=== PATIENT | male | born 1970 | race Caucasian/White ===

== ENCOUNTER 2017-12-21 20:16 | Emergency (ER) | payer OTHER ==
[~2017-12-21] VITALS: Ht 167.6 cm; Wt 163.3 kg
[~2017-12-21 20:16] MED LIST: ACET325 PO; ACET500 PO; AMOCLA875 PO; AMOX500 PO; ARTTEAOPSO BOTHEYES; ASPI81CH PO; ASPI81EC; ASPI81EC PO; ATEN100; ATEN50 PO; ATOR10 PO; AZIT500 PO; Adult Low Dose81 MG PO; Ayr Saline Na14.1 GM; BISA10S PR; BISM87SU PO; CARV6.25 PO; CEFD300 PO; CEPH500 PO; CLOT1TC TOP; CYCL10 PO; Coreg12.5 MG PO; FURO40 PO; INSR10I SUBQ; Inzo Antifun141.7 GM TOP; LISI5 PO; LOSA50 PO; LOSHYD; Liquitears15 ML BOTHEYES; METF500; METF500 PO; Mapap500 M1 PO; Micro-K10 MEQ PO; Milk Of Ma400 MG/5 M PO; NATURE'S TEARS15 M1 BOTHEYES; NYST100P TOP; NYST100TC TOP; OXYC5 PO; PERIDEX15 ML PO; PIOG30 PO; POTA10T PO; Prinivil10 MG PO; RANI150; RANI150 PO; SALINE NASAL M126 ML INH; SIMV10 PO; SIMV40 PO; SODCHL.65S; TIME COL PO; Ultram50 MG PO; WARF1 PO; WARF10 PO; WARF4 PO; WARF5 PO; WARF6 PO; WARF7.5 PO; [UNRECOGNIZED DRUG - OTHER] RC; [UNRECOGNIZED DRUG - REMARK]; [UNRECOGNIZED DRUG - REMARK]; [UNRECOGNIZED DRUG - REMARK]
[2017-12-21 20:38] LABS: Hematocrit 51.4 % (37.0-53.0); Hemoglobin 15.2 g/dL (13.5-17.5); Mean Corpuscular HGB 27.8 pg (26.0-34.0); Mean Corpuscular HGB Conc 29.6 g/dL (31.5-36.5); Mean Corpuscular Volume 94 fL (80-100); Mean Platelet Volume 10.9 fL (9.1-12.4); Platelet Count 186 K/mm3 (150-400); RDW Coefficient Variation 17.2 % (11.7-14.2); RDW Standard Deviation 59.3 fL (35.1-46.3); Red Blood Cell Count 5.46 M/mm3 (4.30-5.90)
[2017-12-21] MEDS ORDERED: HYDACE25S PR (20:47)
[2017-12-21 20:53] LABS: International Normalized Ratio 3.69
== END 2017-12-21 22:00 | disposition home or self-care (01) ==
LOC: ER 20:16
PROVIDERS: Emergency Medicine
DX: K64.8 Other hemorrhoids (principal); R79.1 Abnormal coagulation profile; I11.0 Hypertensive heart disease with heart failure; I50.9 Heart failure, unspecified; K21.9 Gastro-esophageal reflux disease without esophagitis; E11.9 Type 2 diabetes mellitus without complications; Z95.2 Presence of prosthetic heart valve; Z90.49 Acquired absence of other specified parts of digestive tract; Z88.8 Allergy status to other drugs, medicaments and biological substances; Z79.899 Other long term (current) drug therapy; Z79.84 Long term (current) use of oral hypoglycemic drugs; Z79.01 Long term (current) use of anticoagulants
CPT/HCPCS: 46600; 85027; 85610; 99284

== ENCOUNTER 2020-01-03 21:46 | Emergency (ER) | payer OTHER ==
[~2020-01-03] VITALS: Ht 167.6 cm; Wt 104.3 kg
[~2020-01-03 21:46] MED LIST changes: +HYDACE25S PR
[2020-01-03 22:54] LABS: BASOPHILS ABSOLUTE AUTO 0.01 K/mm3 (0.00-0.23); BASOPHILS PERCENT AUTO 0 % (0-2); EOSINOPHILS ABSOLUTE AUTO 0.06 K/mm3 (0.00-0.68); EOSINOPHILS PERCENT AUTO 1 % (0-6); Hematocrit 47.1 % (37.0-53.0); Hemoglobin 15.1 g/dL (13.5-17.5); IMMATURE GRAN ABSOLUTE AUTO 0.01 K/mm3 (0.00-0.10); IMMATURE GRAN PERCENT AUTO 0 % (0-1); LYMPHOCYTES ABSOLUTE AUTO 1.58 K/mm3 (0.84-5.20); LYMPHOCYTES PERCENT AUTO 21 % (21-46); MONOCYTES ABSOLUTE AUTO 0.45 K/mm3 (0.16-1.47); MONOCYTES PERCENT AUTO 6 % (4-13); Mean Corpuscular HGB 30.3 pg (26.0-34.0); Mean Corpuscular HGB Conc 32.1 g/dL (31.5-36.5); Mean Corpuscular Volume 95 fL (80-100); Mean Platelet Volume 11.1 fL (9.1-12.4); NEUTROPHILS PERCENT AUTO 72 % (41-73); Platelet Count 200 K/mm3 (150-400); RDW Coefficient Variation 13.9 % (11.7-14.2); RDW Standard Deviation 48.5 fL (35.1-46.3); Red Blood Cell Count 4.98 M/mm3 (4.30-5.90); White Blood Cell Count 7.41 K/mm3 (4.00-11.30)
== END 2020-01-04 03:21 | disposition home or self-care (01) ==
LOC: ER 21:46
PROVIDERS: Emergency Medicine
DX: R04.0 Epistaxis (principal); E11.9 Type 2 diabetes mellitus without complications; I10 Essential (primary) hypertension; K21.9 Gastro-esophageal reflux disease without esophagitis; G71.00 Muscular dystrophy, unspecified; Z86.73 Personal history of transient ischemic attack (TIA), and cerebral infarction without residual deficits
CPT/HCPCS: 85025

== ENCOUNTER 2020-01-17 19:31 | Emergency (ER) | payer OTHER ==
[~2020-01-17] VITALS: Ht 167.6 cm; Wt 127.0 kg
== END 2020-01-17 23:12 | disposition home or self-care (01) ==
LOC: ER 19:31
DX: K91.841 Postprocedural hemorrhage of a digestive system organ or structure following other procedure (principal); R04.0 Epistaxis; E11.9 Type 2 diabetes mellitus without complications; I10 Essential (primary) hypertension; K21.9 Gastro-esophageal reflux disease without esophagitis; G47.33 Obstructive sleep apnea (adult) (pediatric); Z86.73 Personal history of transient ischemic attack (TIA), and cerebral infarction without residual deficits; Z79.01 Long term (current) use of anticoagulants; Z79.899 Other long term (current) drug therapy; Z88.8 Allergy status to other drugs, medicaments and biological substances; Z79.84 Long term (current) use of oral hypoglycemic drugs
CPT/HCPCS: 99282

== ENCOUNTER → 2020-10-02 | Outpatient (CLI) | payer OTHER | END | disposition home or self-care (01) | LOC: LAB SHORT 10:31 → LAB EV 10:31 | DX: L72.3 Sebaceous cyst (principal) | CPT/HCPCS: 87070; 87075; 87077; 87147; 87186; 87205 ==

== ENCOUNTER → 2021-10-16 | Outpatient (CLI) | payer OTHER | END | disposition home or self-care (01) | LOC: LAB SHORT 15:38 → LAB 15:38 | DX: R35.0 Frequency of micturition (principal) | CPT/HCPCS: 87086 ==

== ENCOUNTER → 2022-12-30 | Outpatient (CLI) | payer OTHER ==
[2022-12-30 18:55] LABS: Bun/Creatinine Ratio 27.2 (12.0-20.0); Calcium, Blood 9.2 mg/dL (8.5-10.1); Creatinine, Blood 0.81 mg/dL (0.60-1.20); Potassium, Blood 3.9 mmol/L (3.5-5.5)
[2022-12-31 14:40] LABS: BASOPHILS ABSOLUTE AUTO 0.01 K/mm3 (0.00-0.23); BASOPHILS PERCENT AUTO 0 % (0-2); EOSINOPHILS ABSOLUTE AUTO 0.05 K/mm3 (0.00-0.68); EOSINOPHILS PERCENT AUTO 1 % (0-6); Hematocrit 45.2 % (37.0-53.0); Hemoglobin 13.8 g/dL (13.5-17.5); IMMATURE GRAN ABSOLUTE AUTO 0.01 K/mm3 (0.00-0.10); IMMATURE GRAN PERCENT AUTO 0 % (0-1); LYMPHOCYTES ABSOLUTE AUTO 1.16 K/mm3 (0.84-5.20); LYMPHOCYTES PERCENT AUTO 27 % (21-46); MONOCYTES PERCENT AUTO 9 % (4-13); Mean Corpuscular HGB 29.6 pg (26.0-34.0); Mean Corpuscular HGB Conc 30.5 g/dL (31.5-36.5); Mean Corpuscular Volume 97 fL (80-100); NEUTROPHILS ABSOLUTE AUTO 2.68 K/mm3 (1.96-9.15); NEUTROPHILS PERCENT AUTO 62 % (41-73); Platelet Count 102 K/mm3 (150-400); RDW Coefficient Variation 15.8 % (11.7-14.2); Red Blood Cell Count 4.66 M/mm3 (4.30-5.90); White Blood Cell Count 4.31 K/mm3 (4.00-11.30)
== END | disposition home or self-care (01) ==
LOC: LAB 14:52 → LAB SHORT 14:52
PROVIDERS: Nurse Practitioner Family
DX: Z13.29 Encounter for screening for other suspected endocrine disorder (principal); I73.9 Peripheral vascular disease, unspecified; I10 Essential (primary) hypertension; R60.9 Edema, unspecified
CPT/HCPCS: 80048; 83880; 84443; 85025

== ENCOUNTER → 2023-01-09 | Outpatient (CLI) | payer OTHER ==
[~2023-01-09] MED LIST changes: +AFRIN15 M6 NS; +Lasix40 MG PO
== END | disposition home or self-care (01) ==
LOC: LAB SHORT 13:24
DX: R35.0 Frequency of micturition (principal)
CPT/HCPCS: 87086

== ENCOUNTER 2023-01-13 17:39 | Emergency (ER) | payer OTHER ==
[~2023-01-13] VITALS: Ht 172.7 cm; Wt 95.2 kg
[~2023-01-13 17:39] MED LIST changes: -AFRIN15 M6 NS; -Lasix40 MG PO
[2023-01-13] MEDS ORDERED: AFRIN15 M6 NS (17:58)
[2023-01-13] MEDS ORDERED: BISA10S PR (18:00)
[2023-01-13 19:16] LABS: BASOPHILS ABSOLUTE AUTO 0.01 K/mm3 (0.00-0.23); BASOPHILS PERCENT AUTO 0 % (0-2); EOSINOPHILS ABSOLUTE AUTO 0.06 K/mm3 (0.00-0.68); EOSINOPHILS PERCENT AUTO 1 % (0-6); Hematocrit 45.7 % (37.0-53.0); Hemoglobin 14.3 g/dL (13.5-17.5); IMMATURE GRAN ABSOLUTE AUTO 0.01 K/mm3 (0.00-0.10); IMMATURE GRAN PERCENT AUTO 0 % (0-1); LYMPHOCYTES ABSOLUTE AUTO 0.93 K/mm3 (0.84-5.20); LYMPHOCYTES PERCENT AUTO 18 % (21-46); MONOCYTES ABSOLUTE AUTO 0.46 K/mm3 (0.16-1.47); MONOCYTES PERCENT AUTO 9 % (4-13); Mean Corpuscular HGB 29.6 pg (26.0-34.0); Mean Corpuscular HGB Conc 31.3 g/dL (31.5-36.5); Mean Corpuscular Volume 95 fL (80-100); Mean Platelet Volume 11.9 fL (9.1-12.4); NEUTROPHILS ABSOLUTE AUTO 3.73 K/mm3 (1.96-9.15); NEUTROPHILS PERCENT AUTO 72 % (41-73); Platelet Count 97 K/mm3 (150-400); Red Blood Cell Count 4.83 M/mm3 (4.30-5.90)
[2023-01-13 19:35] LABS: Magnesium, Blood 2.2 mg/dL (1.6-2.4)
[2023-01-13 19:37] LABS: Alanine Aminotransfer (ALT/SGP 24 U/L (12-78); Albumin, Blood 3.4 g/dL (3.4-5.0); Albumin/Globulin Ratio 0.9 (0.8-1.8); Alk Phos 63 U/L (50-136); Anion Gap Unable to Calculate mmol/L (6-16); Aspartate Aminotrans (AST/SGOT 19 U/L (12-37); Bilirubin, Total 1.1 mg/dL (0.1-1.0); Blood Urea Nitrogen 25 mg/dL (8-24); Bun/Creatinine Ratio 34.2 (12.0-20.0); CO2, Blood 33 mmol/L (21-32); Calcium, Blood 9.2 mg/dL (8.5-10.1); Chloride, Blood 112 mmol/L (98-108); Creatinine, Blood 0.73 mg/dL (0.60-1.20); Globulin, Blood 3.6 g/dL (2.2-4.0); Glomerular Filtration Rate 111 (60-); Glucose, Blood 109 mg/dL (70-99); Potassium, Blood 4.6 mmol/L (3.5-5.5); Sodium, Blood 144 mmol/L (136-145)
[2023-01-13 19:48] LABS: International Normalized Ratio 3.89; Prothrombin Time Results 37.4 Sec (9.7-11.5)
[2023-01-13] MEDS ORDERED: Lasix40 MG PO (20:32)
== END 2023-01-13 21:35 | disposition home or self-care (01) ==
LOC: ER 17:39
PROVIDERS: Emergency Medicine
DX: R53.1 Weakness (principal); G71.00 Muscular dystrophy, unspecified; I11.0 Hypertensive heart disease with heart failure; I50.9 Heart failure, unspecified; Z88.8 Allergy status to other drugs, medicaments and biological substances; Z79.899 Other long term (current) drug therapy; Z79.01 Long term (current) use of anticoagulants; Z79.84 Long term (current) use of oral hypoglycemic drugs; Z95.2 Presence of prosthetic heart valve
CPT/HCPCS: 36415; 80053; 83735; 84484; 85025; 85610; 93005; 93010; 99284-25

== ENCOUNTER → 2023-01-20 | Outpatient (CLI) | payer OTHER ==
[~2023-01-20] MED LIST changes: +AFRIN15 M6 NS; +Lasix40 MG PO
[2023-01-20 11:59] LABS: BASOPHILS ABSOLUTE AUTO 0.01 K/mm3 (0.00-0.23); BASOPHILS PERCENT AUTO 0 % (0-2); EOSINOPHILS ABSOLUTE AUTO 0.06 K/mm3 (0.00-0.68); EOSINOPHILS PERCENT AUTO 1 % (0-6); Hematocrit 42.2 % (37.0-53.0); Hemoglobin 13.4 g/dL (13.5-17.5); IMMATURE GRAN ABSOLUTE AUTO 0.01 K/mm3 (0.00-0.10); IMMATURE GRAN PERCENT AUTO 0 % (0-1); LYMPHOCYTES ABSOLUTE AUTO 1.21 K/mm3 (0.84-5.20); LYMPHOCYTES PERCENT AUTO 24 % (21-46); MONOCYTES ABSOLUTE AUTO 0.53 K/mm3 (0.16-1.47); MONOCYTES PERCENT AUTO 11 % (4-13); Mean Corpuscular HGB 29.8 pg (26.0-34.0); Mean Corpuscular HGB Conc 31.8 g/dL (31.5-36.5); Mean Corpuscular Volume 94 fL (80-100); Mean Platelet Volume 12.9 fL (9.1-12.4); NEUTROPHILS ABSOLUTE AUTO 3.25 K/mm3 (1.96-9.15); NEUTROPHILS PERCENT AUTO 64 % (41-73); Platelet Count 89 K/mm3 (150-400); RDW Coefficient Variation 15.9 % (11.7-14.2); RDW Standard Deviation 55.1 fL (35.1-46.3); Red Blood Cell Count 4.49 M/mm3 (4.30-5.90); White Blood Cell Count 5.07 K/mm3 (4.00-11.30)
[2023-01-20 12:25] LABS: Bun/Creatinine Ratio 29.7 (12.0-20.0); Calcium, Blood 9.2 mg/dL (8.5-10.1); Creatinine, Blood 0.67 mg/dL (0.60-1.20)
== END | disposition home or self-care (01) ==
LOC: LAB SHORT 10:37 → LAB 10:37
PROVIDERS: Nurse Practitioner Family
DX: R19.7 Diarrhea, unspecified (principal)
CPT/HCPCS: 80048; 85025

== ENCOUNTER 2023-03-05 19:24 | Observation (INO) | payer OTHER ==
[~2023-03-05] VITALS: Ht 172.7 cm; Wt 119.3 kg
[~2023-03-05 19:24] MED LIST changes: +AFRIN15 M6; -AFRIN15 M6 NS; +ARTIFICIAL TEAR15 M2 BOTHEYES; -Ayr Saline Na14.1 GM; -BISM87SU PO; +BISMATROL PO; -Liquitears15 ML BOTHEYES; +NASAL SPRAY88 ML; -SALINE NASAL M126 ML INH; +[UNRECOGNIZED DRUG - OTHER]
[2023-03-05 20:21] LABS: BASOPHILS ABSOLUTE AUTO 0.02 K/mm3 (0.00-0.23); BASOPHILS PERCENT AUTO 1 % (0-2); EOSINOPHILS ABSOLUTE AUTO 0.06 K/mm3 (0.00-0.68); EOSINOPHILS PERCENT AUTO 2 % (0-6); Hematocrit 43.1 % (37.0-53.0); Hemoglobin 13.2 g/dL (13.5-17.5); IMMATURE GRAN ABSOLUTE AUTO 0.01 K/mm3 (0.00-0.10); IMMATURE GRAN PERCENT AUTO 0 % (0-1); LYMPHOCYTES ABSOLUTE AUTO 1.12 K/mm3 (0.84-5.20); LYMPHOCYTES PERCENT AUTO 30 % (21-46); MONOCYTES ABSOLUTE AUTO 0.47 K/mm3 (0.16-1.47); MONOCYTES PERCENT AUTO 13 % (4-13); Mean Corpuscular HGB 29.9 pg (26.0-34.0); Mean Corpuscular HGB Conc 30.6 g/dL (31.5-36.5); Mean Corpuscular Volume 98 fL (80-100); NEUTROPHILS ABSOLUTE AUTO 2.01 K/mm3 (1.96-9.15); NEUTROPHILS PERCENT AUTO 55 % (41-73); Platelet Count 106 K/mm3 (150-400); RDW Standard Deviation 61.3 fL (35.1-46.3); Red Blood Cell Count 4.41 M/mm3 (4.30-5.90); White Blood Cell Count 3.69 K/mm3 (4.00-11.30)
[2023-03-05 20:31] LABS: Alanine Aminotransfer (ALT/SGP 33 U/L (12-78); Albumin, Blood 3.1 g/dL (3.4-5.0); Albumin/Globulin Ratio 0.7 (0.8-1.8); Alk Phos 87 U/L (50-136); Anion Gap Unable to Calculate mmol/L (6-16); Aspartate Aminotrans (AST/SGOT 30 U/L (12-37); Bilirubin, Total 0.7 mg/dL (0.1-1.0); Blood Urea Nitrogen 21 mg/dL (8-24); Bun/Creatinine Ratio 34.2 (12.0-20.0); CO2, Blood 37 mmol/L (21-32); Calcium, Blood 9.1 mg/dL (8.5-10.1); Chloride, Blood 108 mmol/L (98-108); Creatinine, Blood 0.61 mg/dL (0.60-1.20); Globulin, Blood 4.3 g/dL (2.2-4.0); Glomerular Filtration Rate 116 (60-); Glucose, Blood 158 mg/dL (70-99); Potassium, Blood 4.5 mmol/L (3.5-5.5); Sodium, Blood 142 mmol/L (136-145); Total Protein, Blood 7.4 g/dL (6.4-8.2)
[2023-03-05 21:28] LABS: Influenza A, PCR NEGATIVE (NEGATIVE); Influenza B, PCR NEGATIVE (NEGATIVE); Resp Syncytial Virus, PCR NEGATIVE (NEGATIVE); SARS-Cov-2 (COVID-19) PCR, MMC NEGATIVE (NEGATIVE)
[2023-03-05] MEDS ORDERED: FAMO20 PO (23:17)
[2023-03-05] MEDS ORDERED: LOSARTAN POTAS100 M1 PO (23:18)
[2023-03-05] MEDS ORDERED: KLOR-CON 1010 ME9 PO (23:20)
[2023-03-05] MEDS ORDERED: Cetirizine HCl10 MG PO (23:21)
[2023-03-05] MEDS ORDERED: CARVEDILOL25 M9 PO (23:21)
[2023-03-05] MEDS ORDERED: Ventolin/Prove6.7 GM INH (23:22)
[2023-03-06 00:25] LABS: Prothrombin Time Results 72.1 Sec (9.7-11.5)
[2023-03-06 00:27] LABS: International Normalized Ratio 7.71
[2023-03-06 00:28] VITALS: BP 125/65
[2023-03-06 01:28] LABS: Prothrombin Time Results 64.4 Sec (9.7-11.5)
[2023-03-06 01:30] LABS: International Normalized Ratio 6.84
[2023-03-06 07:03] VITALS: BP 118/73
--- NOTE | 2023-03-06 07:37 | NUR ---
RECIEVED PATIENT FROM ED, ALERT AND ORIENTED, BEDBOUND FROM DISEASE PROGRESSION. BLE WOUND PICTURES PLACED IN CHART. INC OR STOOL AND URIN, CHANGES FREQUESNTLY, ABLE TO MAKE NEEDS KNOW, NO ISSUES SWALLOWING PILLS. PATIENT HAD A WET, NONPRODUCTIVE COUGH, DIM IN THE BASES, 3L BASELINE. GENERALIZED AND BLE EDEMA. MUSCLE WAISTING BUE. GROIN, PANIS AND JESÚS AREA REDNESS, POWDER, BARRIER, AND MEP APPLIED. NO OTHER ISSUES TO REPORT.
--- NOTE | 2023-03-06 14:00 | NUR ---
PHYSICIAN COMMUNICATION SPOKE WITH DR KIM AT 1330 REGARING DISCHARGE PLAN. NOTIFIED THAT WOUND CARE NURSE INPATIENT NOT IN TODAY. WOUND CLINIC WILL NOT BE ABLE TO SEE PATIENT AT CLINIC UNTIL FIRST WEEK OF MARCH. PER DR KIM, CHECK WITH CARE MANAGMENT TO SEE IF HOME HEALTH WOULD BE ABLE TO SEE PATIENT, IF NOT DR WILL CONSIDER TO KEEP PATIENT LONGER INPATIENT FOR WOUND CARE AND IV ABX. MIKE DIP DYER NOTIFIED
--- NOTE | 2023-03-06 14:41 | NUR ---
Upon receiving a referral for spiritual care, I visited the patient. He tells me about his medical issues, his love of scary movies and the friends and staff members that he enjoys. He Shares about his [employer] omega, the of his parents and the importance of the comfort of staying in his routines. I provide therapeutic listening and prayer. The pateint responded well and showed signs of increased peace. I will continue to remain available to pateint and family.
[2023-03-06] MEDS ORDERED: PEPTO-BISMOL T262 M2 PO (15:18)
[2023-03-06 15:27] VITALS: BP 112/87
[2023-03-06] MEDS ORDERED: CEFTRIAXON1 GM/50 M2 IV (15:33)
--- NOTE | 2023-03-06 17:15 | NUR ---
PATIENT ORIENTEDX4 PLEASANT AND COOPERATIVE WITH CARE. C/O BILAT LEG PAIN AT BEGINNING OF SHIFT, RESOLVED TO TOLERABLE LEVEL AFTER TREATMENT PER EMAR. CALL LIGHT IN REACH, PATIENT CALLS APPROPRIATELY. BED IN LOW POSITION. WILL CONTINUE TO MONIOR.
--- NOTE | 2023-03-06 18:09 | NUR ---
THIS STAFFING ASSISTANT HAS REVIEWED AND AGREES WITH ALL ALL NOTES AND ASSESSMENTS BY AMBERLY AMELIA.
--- NOTE | 2023-03-06 19:05 | NUR ---
PATIENT DISCHARGED HOME WITH [facility] VIA HOSPITAL BED AT 1820 03/06/23. POWER GLIDE IN PLACE TO LEFT UPPER ARM.
[2023-03-07] MEDS ORDERED: Amoxicillin500 M1 PO (21:29)
[2023-03-07] MEDS ORDERED: CEPH500 PO (21:30)
== END 2023-03-06 18:34 | disposition home or self-care (01) ==
LOC: ER 19:24 → MEDS 19:25
PROVIDERS: Family Medicine; Student in an Organized Health Care Education/Training Program; ADMIT Internal Medicine
DX: J18.9 Pneumonia, unspecified organism (principal); L03.119 Cellulitis of unspecified part of limb; E11.622 Type 2 diabetes mellitus with other skin ulcer; L97.829 Non-pressure chronic ulcer of other part of left lower leg with unspecified severity; L97.819 Non-pressure chronic ulcer of other part of right lower leg with unspecified severity; I11.0 Hypertensive heart disease with heart failure; I50.9 Heart failure, unspecified; I48.91 Unspecified atrial fibrillation; K21.9 Gastro-esophageal reflux disease without esophagitis; G47.33 Obstructive sleep apnea (adult) (pediatric); Z66 Do not resuscitate; Z95.4 Presence of other heart-valve replacement; Z88.8 Allergy status to other drugs, medicaments and biological substances; Z79.01 Long term (current) use of anticoagulants; Z79.84 Long term (current) use of oral hypoglycemic drugs; Z79.899 Other long term (current) drug therapy; Z20.822 Contact with and (suspected) exposure to COVID-19
CPT/HCPCS: 0241U; 36415; 71046; 80053; 82947; 83036; 83605; 83880; 85025; 85610; 93005; 93010; 94640; 94664; 94760; 96365; 96375; 99285-25; A9270; C1751; G0378; J0696; J1940

== ENCOUNTER 2023-03-07 05:53 | Emergency (ER) | payer OTHER ==
[~2023-03-07] VITALS: Ht 167.6 cm; Wt 104.3 kg
[~2023-03-07 05:53] MED LIST changes: +CARVEDILOL25 M9 PO; +CEFTRIAXON1 GM/50 M2 IV; +Cetirizine HCl10 MG PO; +FAMO20 PO; +KLOR-CON 1010 ME9 PO; +LOSARTAN POTAS100 M1 PO; +PEPTO-BISMOL T262 M2 PO; +Ventolin/Prove6.7 GM INH
[2023-03-07 06:28] LABS: BASOPHILS ABSOLUTE AUTO 0.02 K/mm3 (0.00-0.23); BASOPHILS PERCENT AUTO 0 % (0-2); EOSINOPHILS ABSOLUTE AUTO 0.03 K/mm3 (0.00-0.68); EOSINOPHILS PERCENT AUTO 0 % (0-6); Hematocrit 43.3 % (37.0-53.0); Hemoglobin 13.5 g/dL (13.5-17.5); IMMATURE GRAN ABSOLUTE AUTO 0.02 K/mm3 (0.00-0.10); IMMATURE GRAN PERCENT AUTO 0 % (0-1); LYMPHOCYTES ABSOLUTE AUTO 1.08 K/mm3 (0.84-5.20); LYMPHOCYTES PERCENT AUTO 16 % (21-46); MONOCYTES ABSOLUTE AUTO 0.51 K/mm3 (0.16-1.47); MONOCYTES PERCENT AUTO 8 % (4-13); Mean Corpuscular HGB 29.9 pg (26.0-34.0); Mean Corpuscular HGB Conc 31.2 g/dL (31.5-36.5); Mean Corpuscular Volume 96 fL (80-100); Mean Platelet Volume 11.9 fL (9.1-12.4); NEUTROPHILS ABSOLUTE AUTO 5.04 K/mm3 (1.96-9.15); NEUTROPHILS PERCENT AUTO 75 % (41-73); Platelet Count 148 K/mm3 (150-400); RDW Coefficient Variation 16.6 % (11.7-14.2); RDW Standard Deviation 58.9 fL (35.1-46.3); Red Blood Cell Count 4.52 M/mm3 (4.30-5.90)
[2023-03-07 06:49] LABS: Albumin, Blood 3.2 g/dL (3.4-5.0); Albumin/Globulin Ratio 0.8 (0.8-1.8); Bilirubin, Total 0.9 mg/dL (0.1-1.0); Bun/Creatinine Ratio 36.5 (12.0-20.0); Calcium, Blood 9.4 mg/dL (8.5-10.1); Creatinine, Blood 0.71 mg/dL (0.60-1.20); Magnesium, Blood 1.8 mg/dL (1.6-2.4); Potassium, Blood 4.4 mmol/L (3.5-5.5); Total Protein, Blood 7.2 g/dL (6.4-8.2)
[2023-03-07 07:37] LABS: Influenza A, PCR NEGATIVE (NEGATIVE); Influenza B, PCR NEGATIVE (NEGATIVE); Resp Syncytial Virus, PCR NEGATIVE (NEGATIVE); SARS-Cov-2 (COVID-19) PCR, MMC NEGATIVE (NEGATIVE)
[2023-03-07 10:30] VITALS: BP 125/80
[2023-03-07] MEDS ORDERED: Amoxicillin500 M1 PO (21:29)
[2023-03-07] MEDS ORDERED: CEPH500 PO (21:30)
== END 2023-03-07 11:20 | disposition home or self-care (01) ==
LOC: ER 05:53
PROVIDERS: Student in an Organized Health Care Education/Training Program
DX: I11.0 Hypertensive heart disease with heart failure (principal); I50.9 Heart failure, unspecified; J96.11 Chronic respiratory failure with hypoxia; Z88.8 Allergy status to other drugs, medicaments and biological substances; Z79.899 Other long term (current) drug therapy; Z79.01 Long term (current) use of anticoagulants; K21.9 Gastro-esophageal reflux disease without esophagitis; E11.9 Type 2 diabetes mellitus without complications; G47.33 Obstructive sleep apnea (adult) (pediatric)
CPT/HCPCS: 0241U; 71045; 80053; 83735; 83880; 84145; 84484; 85025; 93005; 93010; 96365; 96375; 99285-25; J0696; J1940

== ENCOUNTER 2023-03-07 20:55 | Inpatient (IN) | payer OTHER ==
[~2023-03-07] VITALS: Ht 170.2 cm; Wt 107.5 kg
[2023-03-07] MEDS ORDERED: Amoxicillin500 M1 PO (21:29)
[2023-03-07] MEDS ORDERED: CEPH500 PO (21:30)
[2023-03-07 23:54] LABS: BASOPHILS ABSOLUTE AUTO 0.02 K/mm3 (0.00-0.23); BASOPHILS PERCENT AUTO 0 % (0-2); EOSINOPHILS ABSOLUTE AUTO 0.14 K/mm3 (0.00-0.68); EOSINOPHILS PERCENT AUTO 2 % (0-6); Hematocrit 45.7 % (37.0-53.0); Hemoglobin 13.8 g/dL (13.5-17.5); IMMATURE GRAN ABSOLUTE AUTO 0.01 K/mm3 (0.00-0.10); IMMATURE GRAN PERCENT AUTO 0 % (0-1); LYMPHOCYTES ABSOLUTE AUTO 1.01 K/mm3 (0.84-5.20); LYMPHOCYTES PERCENT AUTO 16 % (21-46); MONOCYTES ABSOLUTE AUTO 0.55 K/mm3 (0.16-1.47); MONOCYTES PERCENT AUTO 9 % (4-13); Mean Corpuscular HGB 29.6 pg (26.0-34.0); Mean Corpuscular HGB Conc 30.2 g/dL (31.5-36.5); Mean Corpuscular Volume 98 fL (80-100); Mean Platelet Volume 11.4 fL (9.1-12.4); NEUTROPHILS ABSOLUTE AUTO 4.46 K/mm3 (1.96-9.15); NEUTROPHILS PERCENT AUTO 72 % (41-73); Platelet Count 141 K/mm3 (150-400); RDW Coefficient Variation 16.5 % (11.7-14.2); RDW Standard Deviation 60.3 fL (35.1-46.3); Red Blood Cell Count 4.67 M/mm3 (4.30-5.90); White Blood Cell Count 6.19 K/mm3 (4.00-11.30)
[2023-03-08] VITALS (32 sets, daily range): BP systolic 71–125; BP diastolic 51–96
[2023-03-08 00:15] LABS: Alanine Aminotransfer (ALT/SGP 46 U/L (12-78); Albumin/Globulin Ratio 0.7 (0.8-1.8); Alk Phos 82 U/L (50-136); Anion Gap Unable to Calculate mmol/L (6-16); Aspartate Aminotrans (AST/SGOT 51 U/L (12-37); Bilirubin, Total 0.7 mg/dL (0.1-1.0); Blood Urea Nitrogen 27 mg/dL (8-24); Bun/Creatinine Ratio 36.4 (12.0-20.0); CO2, Blood 40 mmol/L (21-32); Chloride, Blood 105 mmol/L (98-108); Creatinine, Blood 0.74 mg/dL (0.60-1.20); Globulin, Blood 4.2 g/dL (2.2-4.0); Glomerular Filtration Rate 110 (60-); Glucose, Blood 185 mg/dL (70-99); Potassium, Blood 4.5 mmol/L (3.5-5.5); Sodium, Blood 142 mmol/L (136-145); Total Protein, Blood 7.2 g/dL (6.4-8.2)
[2023-03-08 00:40] LABS: Source, Urine Straight Cath
[2023-03-08 00:43] LABS: Bilirubin, Urine Neg (Neg); Blood, Urine Neg (Neg); Glucose Qualitative, Urine Neg (Neg); Ketones, Urine Neg (Neg); Leukocyte Esterase, Urine Neg (Neg); Nitrite, Urine Neg (Neg); Protein, Urine 3+ (Neg); Specific Gravity, Urine 1.025 (1.003-1.022); Urobilinogen, Urine 1+ (Normal)
[2023-03-08 00:50] LABS: Appearance, Urine Clear (Clear); Color, Urine Yellow (P-Yellow)
[2023-03-08 00:51] LABS: Bacteria Rare /hpf; Red Blood Cells, Urine Not Seen /hpf (0-2); Squamous Epithelial Cells Few /hpf (Few); White Blood Cells, Urine Not Seen /hpf (0-5)
[2023-03-08 00:52] LABS: Amorphous Mod (0-Heavy); Mucus Light (0-Heavy)
[2023-03-08 06:40] LABS: Prothrombin Time Results 53.5 Sec (9.7-11.5)
[2023-03-08 06:46] LABS: International Normalized Ratio 5.62
[2023-03-08 12:01] LABS: PCO2 Arterial > 104 mmHg (35-45); PO2 Arterial 71.7 mmHg (80-100); pH Blood Arterial 7.06 (7.35-7.45)
[2023-03-08 12:14] LABS: BASOPHILS ABSOLUTE AUTO 0.03 K/mm3 (0.00-0.23); BASOPHILS PERCENT AUTO 0 % (0-2); EOSINOPHILS ABSOLUTE AUTO 0.01 K/mm3 (0.00-0.68); EOSINOPHILS PERCENT AUTO 0 % (0-6); Hematocrit 50.6 % (37.0-53.0); Hemoglobin 14.9 g/dL (13.5-17.5); IMMATURE GRAN ABSOLUTE AUTO 0.06 K/mm3 (0.00-0.10); IMMATURE GRAN PERCENT AUTO 1 % (0-1); LYMPHOCYTES ABSOLUTE AUTO 0.85 K/mm3 (0.84-5.20); LYMPHOCYTES PERCENT AUTO 10 % (21-46); MONOCYTES PERCENT AUTO 5 % (4-13); Mean Corpuscular HGB 29.9 pg (26.0-34.0); Mean Corpuscular HGB Conc 29.4 g/dL (31.5-36.5); Mean Corpuscular Volume 101 fL (80-100); Mean Platelet Volume 11.6 fL (9.1-12.4); NEUTROPHILS ABSOLUTE AUTO 7.26 K/mm3 (1.96-9.15); NEUTROPHILS PERCENT AUTO 84 % (41-73); Platelet Count 174 K/mm3 (150-400); RDW Coefficient Variation 16.5 % (11.7-14.2); RDW Standard Deviation 62.4 fL (35.1-46.3); Red Blood Cell Count 4.99 M/mm3 (4.30-5.90); White Blood Cell Count 8.61 K/mm3 (4.00-11.30)
[2023-03-08 12:31] LABS: Calcium, Blood 9.3 mg/dL (8.5-10.1); Potassium, Blood 5.3 mmol/L (3.5-5.5)
--- NOTE | 2023-03-08 12:44 | NUR ---
ASSUMPTION OF CARE PT TO ROOM BY HOSPITAL BED FROM MEDICAL FLOOR. RECEIVED REPORT PRIOR TO ARRIVAL. PT ON BIPAP. UNRESPONSIVE, PT OPENED EYES AND MOANED WHEN TRANSFERRED TO ICU BED. HR 90-100'S. OZQU HOMES FOR THE HANDICAP ADMINISTER STOPPED BY, ALL QUESTIONS ANSWERED, CONFIRMED PLAN OF CARE.
--- NOTE | 2023-03-08 12:54 | NUR ---
HUMAN RELATIONS PROFESSOR AT [facility] 11:30, I WENT TO RECHECK ON THE PT, HE WAS DUSKY IN COLOR NOT RESPONSIVE TO STIMULI, THE PTS GREIGE GOODS INSPECTOR WAS AT THE BEDSIDE STATED THAT THE PT WAS MUMBLING INCOHERENTLY EARLIER. THE CHARGE NURSE WAS CALLED TO THE ROOM AND DR. MONTELONGO WAS CALLED TO THE ROOM. A HUMAN RELATIONS PROFESSOR WAS CALLED THE PTS O2 SATS WERE IN THE 60% RANGE AND SBP IN THE 50'S. PT WAS TAKEN TO ICU 10 ON BIPAP. REPORT WAS GIVEN TO WALTER GAMING
[2023-03-08 15:38] LABS: U Amphetamine Screen Not Detected; U Barbituate Screen Not Detected; U Benzodiazapine Screen Not Detected; U Buprenorphine Screen Not Detected; U Cannabinoids Screen Not Detected; U Cocaine Screen Not Detected; U Methadone Screen Not Detected; U Methamphetamine Screen Not Detected; U Opiates Screen Not Detected; U Oxycodone Screen Not Detected; U Phencyclidine Screen Not Detected; U Propoxyphene Screen Not Detected
[2023-03-08 16:34] LABS: PCO2 Arterial 82 mmHg (35-45); PO2 Arterial 77.2 mmHg (80-100); pH Blood Arterial 7.24 (7.35-7.45)
--- NOTE | 2023-03-08 17:37 | NUR ---
SHIFT SUMMARY PT RESTING IN BED COMFORTABLY. PT RESPONSIVE TO NOXIOUS STIMULI. PT OPENS EYES OCCASIONALLY AND MOANS. HR 90-100'S, PICC LINE PLACED BY YUKO. BP DROPPED, DR. MONTELONGO NOTIFIED OF BP, LEVOPHED ORDERED. LEVOPHED GTT STARTED AT 4MCG/MIN. WEEPING WOUNDS TO BLE BANDAGED WITH KERLIX. PRESSURE WOUND TO LEFT BUTTOCK, PICTURES OF ALL WOUNDS IN CHART. PT ON BIPAP, 40% FI02, TITRATED DOWN THROUGHOUT THE SHIFT. PT CAREGIVER AT BEDSIDE, ALL QUESTIONS ANSWERED. WILL CONTINUE TO MONITOR AND GIVE REPORT TO ONCOMING RN.
--- NOTE | 2023-03-08 20:22 | NUR ---
ASSUMED CARE AT 1900 PATIENT RESPONDS TO VERBAL STIMULI, MUMBLES BUT NODS HEAD APPROPRIETLY. FOLLOWS COMMANDS. 02 SATS 94% ON BIPAP 18/8 FI02 30%. RR 20. LS DIMINISHED T/O. HR SR-ST 90-110. BP STABLE ON 2 MCG/MIN LEVOPHED, TITRATING DOWN. GANHDI PATENT AND DRAINING TO GRAVITY. WOUNDS ON LEGS WRAPPED, DRESSINGS C/D/I, PHOTOS OF WOUNDS IN CHART. ORAL CARE DONE AND PATIENT REPOSITIONED. CALL LIGHT IN REACH
[2023-03-09] VITALS (34 sets, daily range): BP systolic 93–146; BP diastolic 58–97
--- NOTE | 2023-03-09 01:31 | NUR ---
PT UPDATE: I HAVE ASSUMED CARE OF PT.
[2023-03-09 04:07] LABS: BASOPHILS ABSOLUTE AUTO 0.01 K/mm3 (0.00-0.23); BASOPHILS PERCENT AUTO 0 % (0-2); EOSINOPHILS PERCENT AUTO 0 % (0-6); Hematocrit 42.9 % (37.0-53.0); Hemoglobin 13.3 g/dL (13.5-17.5); IMMATURE GRAN ABSOLUTE AUTO 0.03 K/mm3 (0.00-0.10); IMMATURE GRAN PERCENT AUTO 0 % (0-1); LYMPHOCYTES ABSOLUTE AUTO 1.11 K/mm3 (0.84-5.20); LYMPHOCYTES PERCENT AUTO 14 % (21-46); MONOCYTES ABSOLUTE AUTO 1.02 K/mm3 (0.16-1.47); MONOCYTES PERCENT AUTO 13 % (4-13); Mean Corpuscular Volume 97 fL (80-100); Mean Platelet Volume 11.3 fL (9.1-12.4); NEUTROPHILS ABSOLUTE AUTO 5.88 K/mm3 (1.96-9.15); NEUTROPHILS PERCENT AUTO 73 % (41-73); Platelet Count 155 K/mm3 (150-400); RDW Coefficient Variation 16.5 % (11.7-14.2); RDW Standard Deviation 59.4 fL (35.1-46.3); Red Blood Cell Count 4.44 M/mm3 (4.30-5.90); White Blood Cell Count 8.05 K/mm3 (4.00-11.30)
[2023-03-09 04:30] LABS: Alanine Aminotransfer (ALT/SGP 72 U/L (12-78); Albumin, Blood 2.6 g/dL (3.4-5.0); Albumin/Globulin Ratio 0.8 (0.8-1.8); Alk Phos 75 U/L (50-136); Anion Gap Unable to Calculate mmol/L (6-16); Aspartate Aminotrans (AST/SGOT 103 U/L (12-37); Bilirubin, Total 0.6 mg/dL (0.1-1.0); Blood Urea Nitrogen 41 mg/dL (8-24); CO2, Blood 38 mmol/L (21-32); Chloride, Blood 111 mmol/L (98-108); Creatinine, Blood 0.85 mg/dL (0.60-1.20); Globulin, Blood 3.4 g/dL (2.2-4.0); Glomerular Filtration Rate 105 (60-); Glucose, Blood 146 mg/dL (70-99); Potassium, Blood 4.2 mmol/L (3.5-5.5); Sodium, Blood 147 mmol/L (136-145)
[2023-03-09 04:31] LABS: Prothrombin Time Results 67.2 Sec (9.7-11.5)
[2023-03-09 04:40] LABS: International Normalized Ratio 7.15
[2023-03-09 05:50] LABS: PCO2 Arterial 58.8 mmHg (35-45); PO2 Arterial 82.3 mmHg (80-100); pH Blood Arterial 7.42 (7.35-7.45)
--- NOTE | 2023-03-09 06:34 | NUR ---
SHIFT SUMMARY: NO ACUTE CHANGES THIS SHIFT. PT ABG THIS MORNING IMPROVED AND RT GAVE THE GREEN LIGHT TO TAKE PT OFF BIPAP; PT TRIALED ON NC @ 6LPM AND IS MAINTAINING SPO2 94<. LUNG SOUNDS ARE STILL SLIGHTLY DIMINSIHED WITH RHONCHI IN UPPER AND MIDDLE LOBES; PT HAS BEEN COUGHING UP WHITE SPUTUM. ORAL CARE PROVIDED BUT PT VERY RELUCTANT TO ALLOW FOR THE MOUTH SWAB TO CLEAN HIS TONGUE OR ROOF OF MOUTH. PT HAD 400 ML URINE OUTPUT THIS SHIFT. SBP 120'S, LEVO GTT ON STANDY SINCE 0. PT A&O X 1; UNABLE TO STATE WHERE HE IS AT, WHY HE IS HERE OR THE DATE/TIME ACCURRATELY. BED LOWERED, CALL LIGHT IN REACH, WILL CONTINUE TO MONITOR UNTIL ONCOMING RN ARRIVES.
--- NOTE | 2023-03-09 17:41 | NUR ---
SHIFT SUMMARY PT RESTING COMFORTABLY IN BED. PT ABLE TO ANSWER SOME QUESTIONS APPROPRIATELY AND FOLLOW SIMPLE COMMANDS. HR 100'S, BP STABLE. PT CURRENTLY ON NC AT 5 LPM. O2 SATURATION >95%. PT TOLERATED 2-3 HOUR BREAKS FROM BIPAP. GANDHI CATHETER PATENT AND DRAINING TO GRAVITY. WILL CONTINUE TO MONITOR AND GIVE REPORT TO ONCOMING RN.
[2023-03-10] VITALS (22 sets, daily range): BP systolic 110–147; BP diastolic 71–115
[2023-03-10 03:47] LABS: BASOPHILS ABSOLUTE AUTO 0.03 K/mm3 (0.00-0.23); BASOPHILS PERCENT AUTO 0 % (0-2); EOSINOPHILS ABSOLUTE AUTO 0.01 K/mm3 (0.00-0.68); EOSINOPHILS PERCENT AUTO 0 % (0-6); Hematocrit 41.7 % (37.0-53.0); Hemoglobin 12.8 g/dL (13.5-17.5); IMMATURE GRAN ABSOLUTE AUTO 0.02 K/mm3 (0.00-0.10); IMMATURE GRAN PERCENT AUTO 0 % (0-1); LYMPHOCYTES ABSOLUTE AUTO 1.42 K/mm3 (0.84-5.20); LYMPHOCYTES PERCENT AUTO 21 % (21-46); MONOCYTES ABSOLUTE AUTO 0.82 K/mm3 (0.16-1.47); MONOCYTES PERCENT AUTO 12 % (4-13); Mean Corpuscular HGB 29.6 pg (26.0-34.0); Mean Corpuscular HGB Conc 30.7 g/dL (31.5-36.5); Mean Corpuscular Volume 96 fL (80-100); Mean Platelet Volume 11.3 fL (9.1-12.4); NEUTROPHILS ABSOLUTE AUTO 4.56 K/mm3 (1.96-9.15); NEUTROPHILS PERCENT AUTO 67 % (41-73); Platelet Count 126 K/mm3 (150-400); RDW Coefficient Variation 16.3 % (11.7-14.2); RDW Standard Deviation 57.8 fL (35.1-46.3); Red Blood Cell Count 4.33 M/mm3 (4.30-5.90); White Blood Cell Count 6.86 K/mm3 (4.00-11.30)
[2023-03-10 04:08] LABS: International Normalized Ratio 1.95; Prothrombin Time Results 19.7 Sec (9.7-11.5)
[2023-03-10 04:14] LABS: Anion Gap Unable to Calculate mmol/L (6-16); Blood Urea Nitrogen 39 mg/dL (8-24); Bun/Creatinine Ratio 52.4 (12.0-20.0); CO2, Blood 42 mmol/L (21-32); Calcium, Blood 9.2 mg/dL (8.5-10.1); Chloride, Blood 108 mmol/L (98-108); Creatinine, Blood 0.74 mg/dL (0.60-1.20); Glomerular Filtration Rate 110 (60-); Glucose, Blood 151 mg/dL (70-99); Potassium, Blood 4.1 mmol/L (3.5-5.5); Sodium, Blood 145 mmol/L (136-145)
[2023-03-10 05:00] LABS: PCO2 Arterial 63.7 mmHg (35-45); PO2 Arterial 71.6 mmHg (80-100)
--- NOTE | 2023-03-10 05:36 | NUR ---
SHIFT SUMMARY: Pt has been sleeping for most of the night. Drowsy yet wakes to voice, oriented to person and place. He remained on BIPAP all night except for short breaks for oral care, sips of water, etc. Vitals stable, BIPAP weaned down to 35% 16/8 by RT. INR improved.
--- NOTE | 2023-03-10 07:00 | NUR ---
ASSUMED CARE OF PATIENT.
--- NOTE | 2023-03-10 18:30 | NUR ---
SHIFT SUMMARY: NEURO: PATIENT IS A&O TO SELF, PLACE AND DATE. NO COMPLAINTS OF PAIN. RESP: PATIENTS HOME BIPAP WAS IFEANYI IN AND SET UP BY RT. BIPAP SETTINGS ARE 14/10 WITH 5L BLEED IN AND THE MODE IS AVAPS. PATIENT STARTED OUT WITH THE NASAL MASK, PATIENT WAS SLEEPING WITH MOUTH OPEN AND HIS SATS CONTINUED TO DROP. RT WAS CALLED BACK AND PLACED A FACE MASK. PATIENT HAS MAINTAINED SATS WHILE SLEEPING WITH NEW MASK. PATIENT AND FACILITY STAFF ENCOURAGED TO USE WHILE SLEEPING. PATIENT IS ON 5L NC IF NOT ON BIPAP. CV: PATIENT HAS BEEN IN AFIB BETWEEN 80-110S. ONE TIME DOSE OF WARFARIN GIVEN. GI/: PATIENTS GANDHI WAS DC'D TODAY. PATIENT HAS SINCE BEEN INCONTINENT AND IS WEARING AND ATTENDS WITH A QUICK CHANGE WRAP. PATIENT HAD A SMALL BOWEL MOVEMENT. PATIENT DID NOT EAT MUCH OF ANY OF HIS MEALS TODAY. PATIENT WAS GIVEN AN ENSURE WITH DINNER WHICH HE DRANK MOST OF. SKIN: PATINENT HAS WOUNDS TO HIS BLE. HIS WOUND ON HIS LEFT LEG WAS CLEANED AND LEFT OPEN TO AIR THIS AM THEN REDRESSED THIS AFTERNOON. WOUNDS ON RIGHT LEG DID NOT REQUIRE DRESSING WAS WAS LEFT OPEN TO AIR. IVS: PATIENT HAS A POWERGLIDE IN HIS KRISTOFER. CAP WAS CHANGED TODAY. LINE IS PATENT. PICC LINE WAS DC'D TODAY.
--- NOTE | 2023-03-10 22:00 | NUR ---
ARRIVAL TO [facility] REPORT TAKEN FROM SUPREME COURT JUDGE AT BEDSIDE. ASSIST SUPREME COURT JUDGE WITH TRANSFERING PT VIA ICU BED AT APPROXIMATELY 2135. PT SLID OVER FROM ICU BED TO PCU BED BY 4 CLINICAL STAFF MEMEBERS. PT ARRIVED ON 5L VIA UT, RT NOTIFIED OF TRANSFER AND WILL SET UP PT's HOME BIPAP IN NEW ROOM. SLEEPING COMFORTABLE DURING TRANSFER, OPENED EYES TO LOOK AT STAFF WHEN PT SLID OVER THEN WENT BACK TO SLEEP. PROVIDED JESÚS CARE AND ATTENDS CHANGE UPON ARRIVAL, PT ABLE TO MINIMALLY ASSIST WITH ROLLING. PT ANSWERED YES AND NO QUESTIONS BUT WANTED TO GO BACK TO SLEEP. ORAL CARE PROVIDED WITH SUCTION BEFORE THIS RN PLACED PT BACK ON HOME BIPAP. BED IN LOWEST POSITION, CALL LIGHT IN REACH.
[2023-03-11 03:38] VITALS: BP 124/95
[2023-03-11 04:08] LABS: PO2 Arterial 103 mmHg (80-100)
[2023-03-11 04:09] LABS: International Normalized Ratio 1.68; Prothrombin Time Results 17.1 Sec (9.7-11.5)
[2023-03-11 04:09] LABS: PCO2 Arterial 80.1 mmHg (35-45)
--- NOTE | 2023-03-11 05:05 | NUR ---
SHIFT SUMMARY SEE PREVIOUS NOTES. PT A&0x2-3, ANSWERS YES AND NO QUESTIONS APPROPRIATELY. PT HAS BEEN VERY SLEEPY BUT AROUSABLE SINCE ARRIVAL TO [facility]. BP STABLE, AFIB 90-120's, DENIES CP/PRESSURE. C02 80.1, RT MANAGING BIPAP SETTINGS. SpO2> 92% ON BIPAP 16/8 35%, DENIES SOB. PT INCONTIENT OF URINE AND BOWEL, JESÚS CARE PROVIDE, ATTENDS IN PLACE. ORAL CARE PROVIDED WITH SUCTION. NO OTHER EVENTS, WILL REPORT TO ONCOMING RN.
--- NOTE | 2023-03-11 08:30 | NUR ---
Received report from Noc RN. Patient sleeping with BIPAP 16/8 35% FiO2in place and is difficult to arouse and with minimal response at best. He has limited UE movement r/t MS. wheel roller by and gave hx of abx he was on so was able to call and had her start his dose today. Talked with RT about speaking with to possibly change home BIPAP setting as they feel they are wrong for his current status and causeing current problem to ones he has been on with V60 machine. They are doing ABG later to see improvement. Patient has PowerGlide to KRISTOFER 18ga and is flushed and SL'd. He has attends in place and is incontinent of stool and urine. He has wounds to bilateral LE's and dressings to LLE. MAURIZIO and
[2023-03-11 08:51] VITALS: BP 131/89
--- NOTE | 2023-03-11 11:30 | NUR ---
No significant chages with patient Dr Nath has been by and no new orders. Patient remains on BIPAP 16/8 35% and sats >90%. He continues to be difficult to arouse and is aware. Attends C/D. Held PO med as he is not arouseable enough for PO meds VSS.
[2023-03-11 12:39] VITALS: BP 102/76
[2023-03-11 13:23] LABS: PO2 Arterial 85.2 mmHg (80-100); pH Blood Arterial 7.34 (7.35-7.45)
[2023-03-11 13:25] LABS: PCO2 Arterial 71.5 mmHg (35-45)
--- NOTE | 2023-03-11 14:08 | NUR ---
Patient was unable to give verbal responses or follow verbal commands at this time. Patient's eyes are free of redness and drainage. Patient was able to be briefly roused with sternal rub. Patient is severly lethargic. Patient displays stiffness with adduction in all distal extremities. All distal pulses are weak and thready. 18Ga powergulide. in the KRISTOFER, saline locked and free of redness. Lungs sounds are diminished. Patient is currently initiating breathes with BiPAp 16/8 35%. Heart sounds are present with clicks due to a mechanical valve. rhythm is A-Fib. Bowel sounds are present but diminished in all 4 quadrants. Abdomen is flat and nontender. Patient is incontinent with urine and stool, a brief is currently applied. Patient has 3+ edema on the lower extremities. The left lower leg has a wound that is red and swollen. Wound is not purulent at this time.
--- NOTE | 2023-03-11 15:06 | NUR ---
Called Dr Nath for some labs to see if attributed to his difficultness to arouse. ABG done and showed some signs of improvement. New lab orders and Xray ordered and shira from [facility] did assessment and reviuewed her note. No other significant changes.
--- NOTE | 2023-03-11 17:59 | NUR ---
Patient had CT with contrast and back to room. When taking him off BIPAP for trip he was wide awake and able to answer questions. He has reall thick productive cough and suctioned frequently. By the time he got to CT had to place on NRM at 10L and tolerated well until he got back and placed on BIPAP 16/8 35% and sats >90%. Caregiver back and spent a little time with him. Changed dressing to LLE and caregiver stated never looked better and healing well. Patient denies ant appetite today and denied wanting food. Placed back on monitor in room .VSS.
[2023-03-11 20:16] VITALS: BP 120/73
[2023-03-12 01:14] VITALS: BP 118/85
[2023-03-12 05:09] VITALS: BP 110/82
[2023-03-12 05:22] LABS: Hemoglobin 12.6 g/dL (13.5-17.5); Mean Corpuscular HGB 29.8 pg (26.0-34.0); Mean Corpuscular Volume 99 fL (80-100); Mean Platelet Volume 11.4 fL (9.1-12.4); Platelet Count 107 K/mm3 (150-400); RDW Coefficient Variation 16.7 % (11.7-14.2); RDW Standard Deviation 58.9 fL (35.1-46.3); Red Blood Cell Count 4.23 M/mm3 (4.30-5.90); White Blood Cell Count 6.06 K/mm3 (4.00-11.30)
--- NOTE | 2023-03-12 05:25 | NUR ---
SHIFT SUMMARY A/O X2, W/C BOUND AT BASELINE, LIFT FOR TRANSFERS. TELE SR/ST 90-110. SPO2 >92% ON BIPAP 16/8 35% DRESSING TO LLE C/D/I. VSS, NO ACUTE CHANGES AT THIS TIME. BED IN LOWEST POSITION WITH CALL LIGHT IN REACH. WILL CONTINUE TO MONITOR AND REPORT TO ONCOMING RN.
[2023-03-12 05:36] LABS: International Normalized Ratio 1.85; Prothrombin Time Results 18.8 Sec (9.7-11.5)
[2023-03-12 05:43] LABS: Albumin, Blood 2.4 g/dL (3.4-5.0); Albumin/Globulin Ratio 0.8 (0.8-1.8); Bilirubin, Total 1.4 mg/dL (0.1-1.0); Bun/Creatinine Ratio 43.7 (12.0-20.0); Calcium, Blood 9.1 mg/dL (8.5-10.1); Creatinine, Blood 0.71 mg/dL (0.60-1.20); Globulin, Blood 3.1 g/dL (2.2-4.0); Magnesium, Blood 2.3 mg/dL (1.6-2.4); Potassium, Blood 3.8 mmol/L (3.5-5.5); Total Protein, Blood 5.5 g/dL (6.4-8.2)
[2023-03-12 07:37] VITALS: BP 115/82
--- NOTE | 2023-03-12 09:14 | NUR ---
AM NOTE: RESPIRATORY WAS IN THE ROOM DURING SHIFT CHANGE RE-ADJSUTING MASK ON BIPAP RECOMMENDED TO SHAVE PT'S GUERRERO, PLAN TO TRANSITION PT TO HOME AVAP SUPERVISOR LOCOMOTIVE MADE AWARE TO CALL KEON FOR CHANGE IN SETTINGS PER RT'S RECOMMENDATION. PT ABLE TO STATE NAME KNOWS WHERE HE'S AT AND WHERE HE LIVES. ABLE TO COMMUNICATE, ABLE TO TOLERATE 5L OF O2 ORAL CARE WAS PROVIDED THEN HYGIENIST CAME TO PROVIDE MORE ORAL CARE. PT HAD SOME ASPIRATION EPISODE WITH BREAKFAST THIS MORNING PER TAI CHI INSTRUCTOR, THE REST OF THE BREAKFAST/PO INTAKE WAS HELD DR DELGADO MADE AWARE, ORDERED ST EVAL AND TREAT. VITALS AFIB BBB 100'S, PT IS NOW BACK ON BIPAP 16/8 30% FIO2 SATS ABOVE 92%, AFEBRILE. PT WENT BACK TO SLEEP. FIBER HEEL PIECE SHAPER FROM [place] CALLED AND WAS GIVEN AN UPDATE, WILL COME VISIT THE PT IN THE AFTER NOON. WILL CONTINUE TO MONITOR
[2023-03-12 11:30] VITALS: BP 111/76; BP 158/84
--- NOTE | 2023-03-12 13:29 | NUR ---
Spiritual care visit conducted. Patient tells me that he is coping ok but has a very flat affect. He does talk briefly about the recent of his mother but does not allow much further discussion on that topic. He states that he just wants to sit and watch scary movies but is open to having a prayer said for him. I gladly provide prayer. Patient responded well and showed signs of an elevated mood.
[2023-03-12 16:02] VITALS: BP 105/73
--- NOTE | 2023-03-12 18:26 | NUR ---
PT SUMMARY: SEE PREVIOUS NOTE. PT WAS SEEN BY SPEECH THERAPIST TODAY DIET SWITCHED TO MECHANICAL SOFT THIN LIQUIDS, MEDS CRUSHED WITH APPLESAUCE. PT TOLERATED WELL, CAN ALSO FEED HIMSELF. PT REMAINED ALERT TALKING WHEN SWITCHED TO NASAL CANNULA ON MEAL TIMES, ORIENTATION WAS ON AND OFF SLOW TO RESPOND AT TIMES. BIPAP SETTING 16/8 25% FIO2 ON 3L BASELINE VIA NASAL CANNULA FOR BREAKS, SATS KEPT ABOVE 90%, SBP 110-115'S, HRR AFIB 100'S, AFEBRILE. PT HAS BEEN REPOSITIONED Q2HRS, PT DENIES ANY PAIN/DISCOMFORT. INCONTINENT OF URINE, ATTENDS AND PEE PADS IN PLACE. MOTOR VEHICLE TECHNICIAN CAME IN AND BROUGHT IN THE NEW AVAP MACHINE RESPIRATORY THERAPIST MADE AWARE. NO OTHER ISSUES ENCOUNTERED AT THIS TIME, WILL REPORT TO ONCOMING SHIFT
[2023-03-12 21:00] VITALS: BP 119/94
[2023-03-13] VITALS (8 sets, daily range): BP systolic 110–121; BP diastolic 65–88
[2023-03-13 00:17] LABS: Source, Urine Clean Catch
[2023-03-13 00:23] LABS: Blood, Urine Neg (Neg); Glucose Qualitative, Urine Neg (Neg); Ketones, Urine Neg (Neg); Leukocyte Esterase, Urine 1+ (Neg); Nitrite, Urine Neg (Neg); Protein, Urine 2+ (Neg); Urobilinogen, Urine 4+ (Normal)
[2023-03-13 00:32] LABS: Appearance, Urine Cloudy (Clear); Bilirubin, Urine 1+ (Neg); Color, Urine Yellow (P-Yellow)
[2023-03-13 00:34] LABS: Amorphous Mod (0-Heavy); Bacteria Few /hpf; Red Blood Cells, Urine Not Seen /hpf (0-2); Squamous Epithelial Cells Not Seen /hpf (Few); White Blood Cells, Urine 0-2 /hpf (0-5)
[2023-03-13 05:47] LABS: Hematocrit 43.5 % (37.0-53.0); Hemoglobin 13.2 g/dL (13.5-17.5); Mean Corpuscular HGB 30.2 pg (26.0-34.0); Mean Corpuscular HGB Conc 30.3 g/dL (31.5-36.5); Mean Corpuscular Volume 100 fL (80-100); Mean Platelet Volume 11.3 fL (9.1-12.4); Platelet Count 109 K/mm3 (150-400); RDW Standard Deviation 59.5 fL (35.1-46.3); Red Blood Cell Count 4.37 M/mm3 (4.30-5.90); White Blood Cell Count 6.97 K/mm3 (4.00-11.30)
--- NOTE | 2023-03-13 05:52 | NUR ---
SHIFT SUMMARY ASSUMED CARE OF PT AT 1900. PT IS A/OX2. PT KNOWS SELF AND PLACE BUT DOESNT REMEMBER SITUATION OR DATE. LUNG SOUNDS VERY COARSE. PT HAD WET NON PRODUCTIVE COUGH DURING THE NOC. RT SET UP PT HOME CPAP MACHINE. PT WORE 4L NC WHILE AWAKE. PT WAS INCONTIENT OF URINE. PT L LEG HAS SLIGHT EDEMA; LEG IS WRAPPED. PT HAD NO NEW COMPLAINTS DURING THE NOC.
[2023-03-13 06:04] LABS: International Normalized Ratio 1.64; Prothrombin Time Results 16.7 Sec (9.7-11.5)
[2023-03-13 06:06] LABS: Bun/Creatinine Ratio 40.3 (12.0-20.0); Calcium, Blood 8.8 mg/dL (8.5-10.1); Creatinine, Blood 0.67 mg/dL (0.60-1.20); Potassium, Blood 3.6 mmol/L (3.5-5.5)
--- NOTE | 2023-03-13 13:11 | NUR ---
Supportive visit this afternoon. Pt resting in bed and appears significantly lethargic. Pt struggles with keeping his head up and struggles with verbaly communicating. Spoke with Primary RN who reports Pt was more alert this AM and appears Pt may be experiencing a change in condition. Primary RN reports caregiver spoke wtih Pt's PCP who is recommending upon D/C from hospital Pt may benefit from a high level of LTC. Palliative Care will remain available
[2023-03-13 15:17] LABS: Bicarbonate Venous 29.6 mmol/L (24.0-30.0); PCO2 Venous 68.5 mmHg (38-42); pH Blood Venous 7.31 (7.34-7.37)
--- NOTE | 2023-03-13 15:47 | NUR ---
ASSUMPTION OF CARE AND TRANSFER NOTE THIS RN ASSUMED CARE OF PT AT 0715, REPORT FROM AMBERLY MURPHY. PT AWAKE IN ROOM, A&O X 2 - 3. PT SPEECH CLEAR AND PT RESPONDING TO QUESTIONS. VSS. PT ON 3 L NC, SPO2 >95%. NO SOB NOTED. PT DENIES CP OR PRESSURE. DENIES GENERAL PAIN. PT CONTINUES TO HAVE WET, NONPRODUCTIVE COUGH. PT CLEARING COUGH ON HIS OWN. PT RECEIVED COMPLETE BED BATH, LINEN AND GOWN CHANGE THIS AM. PT ATE BREAKFAST AND LUNCH W/SUPERVISION AND SOME ASSISTANCE, NO ASPIRATION OR COUGHING NOTED DURING THIS TIME. PT DRINKING WELL. Q2 TURNS AND CHANGES COMPLETED OR PRN. PT VOIDING WELL AND INCONTINENT FREQUENTLY. AROUND LUNCH TIME, PT ORIENTATED AND ALERTNESS CHANGED. PT BECAME LETHARGIC AND MORE DIFFICULT TO AROUSE. PT SPEECH BECAME MUMBLED. PROVIDER NOTIFIED. ORDERS FOR CBG CHECK AND VBG. CBG 185. SEE RESULTS FOR VBG. THIS RN TRANSFERRED CARE TO KWAME Blue REPORT GIVEN.
--- NOTE | 2023-03-13 17:19 | NUR ---
ASSUMPTION OF CARE/SHIFT SUMMARY This RN assumed care approx 1530. Patient is lethargic/sleepy, but is arousable. patient stated birthday, name, and that he is at [facility]. patient stated incorrect year, saying it was 2021, and this RN oriented patient back to correct year, 2022. Due to patient mentation this Rn put patient back on bipap and took it off so the patient could eat. patient mentation improved from when this RN first assumed care. patient more awake and engaging in conversation. patient has been repositioned and changed. see ADLs and I&Os. Patient takes meds crushed in applesauce, see orders. Patient is supervised for eating. Call light within reach and bed is in lowest position with bed alarm on.
[2023-03-14 00:13] VITALS: BP 110/75
[2023-03-14 04:04] VITALS: BP 121/82
[2023-03-14 04:40] LABS: Hematocrit 43.2 % (37.0-53.0); Hemoglobin 13.3 g/dL (13.5-17.5); Mean Corpuscular HGB 30.3 pg (26.0-34.0); Mean Corpuscular HGB Conc 30.8 g/dL (31.5-36.5); Mean Corpuscular Volume 98 fL (80-100); Mean Platelet Volume 11.5 fL (9.1-12.4); Platelet Count 104 K/mm3 (150-400); RDW Coefficient Variation 17.3 % (11.7-14.2); RDW Standard Deviation 59.3 fL (35.1-46.3); Red Blood Cell Count 4.39 M/mm3 (4.30-5.90); White Blood Cell Count 7.66 K/mm3 (4.00-11.30)
[2023-03-14 05:00] LABS: International Normalized Ratio 2.49; Prothrombin Time Results 24.8 Sec (9.7-11.5)
[2023-03-14 05:15] LABS: Albumin, Blood 2.7 g/dL (3.4-5.0); Albumin/Globulin Ratio 0.8 (0.8-1.8); Bilirubin, Total 0.8 mg/dL (0.1-1.0); Bun/Creatinine Ratio 36.4 (12.0-20.0); Creatinine, Blood 0.66 mg/dL (0.60-1.20); Globulin, Blood 3.5 g/dL (2.2-4.0); Potassium, Blood 3.8 mmol/L (3.5-5.5); Total Protein, Blood 6.2 g/dL (6.4-8.2)
--- NOTE | 2023-03-14 06:17 | NUR ---
SHIFT SUMMARY ASSUMED CARE OF PT AT 1900. PT WAS VERY LETHARGIC AT START OF SHIFT, PT WENT TO BED AND HAD BIPAP ON ALL NOC UNTIL 0400 WHEN PT AWOKE AND WATCHED TV. PT ABLE TO ANSWER SOME ORIENTATION, LIKE HIS NAME, PLACE AND THE MONTH. PT STILL HAD WET UNPRODUCTIVE COUGH. PT IS ON 6L NC WHILE BEING CHANGED IN BED AND WILL DESAT WHEN HE BREATHS THROUGH HIS MOUTH TO 85%. PT WAS TURNED Q2. INCONTINENT OF URINE. NO ACUTE EVENTS DURING THE NOC.
--- NOTE | 2023-03-14 09:52 | NUR ---
Pt resting in bed eating his breakfast upon arrival. Pt more alert this AM in comparison to yesterday afternoon. Pt A&OX3. Pt unable to appropriately verbalize reason for hospital stay and states "because I'm sick". Pt denies pain and discomfort at this time. Attempted to engage in therapeutic discussion regarding appointing a healthcare proxy. Pt appears to struggle with processing conversation, unsure if this is due to his focus on breakfast or poor level of understanding. Ended visit to allow Pt to eat. Spoke with RN Caremanspike Mahoney and discussed case. Palliative Care will remain available
--- NOTE | 2023-03-14 10:30 | NUR ---
STUDENT NURSE ARSH AND I ARE CARING FOR THIS PATIENT. PLEASE SEE HER NOTES, WE ARE IN CARE TOGETHER.
[2023-03-14 12:52] VITALS: BP 112/69
--- NOTE | 2023-03-14 13:36 | NUR ---
PT'S DISCHARGE PLAN HAS BEEN COMPLETED, WE ARE AWAITING TRANSPORTATION BACK TO HIS CARE FACILITY. HE IS EXCITED ABOUT RETURNING HOME, HE HAS VOICED THIS. HE IS ABLE TO CURRENTLY MAINTAIN HIS SATS AND STAY AWAKE WELL AT THIS TIME.
--- NOTE | 2023-03-14 15:11 | NUR ---
1430 PHONED KANDI THE SALES PROJECT ADMINISTRATOR OF THE [facility] THAT [facility] [place]. TRIED TO SPEAK WITH HER REGARDING THE DISCHARGE INSTRUCTIONS, SHE MENTIONED SHE HAD ALREADY HAD 2 PHONE CALLS REGARDING THE DISCHARGE AND THEN THE PHONE CALL WAS "LOST" OR SHE HAD HUNG UP. THEN RECEIVED A PHONE CALL FROM [facility], ONE OF THE CARE PROVIDERS AT THE HOME WITH CONCERNS REGARDING THE PATIENT RETURNING HOME. CONCERNS HEARD AND ADDRESSED WITH DROP BOARD WORKER AND COURT ATTENDANT. PT WAS THEN READIED FOR DISCHARGE WITH POWER GLIDE REMOVED BY AMBERLY ESTRADA, TELEMETRY DC'D, AND PT MOVED BY LIFT TO WHEELCHAIR, ALL BELONGINGS WERE GATHERED AND GIVEN TO COTTON WASHER. PHONE CALL TO [facility] TO LET HER KNOW OF THE PLAN AND QUESTIONS ANSWERED.
[2023-03-15] MEDS ORDERED: AFRIN15 M6 INH (14:49)
== END 2023-03-14 14:50 | disposition home or self-care (01) | DRG 291 ==
LOC: ER 20:55 → ICUW 03-08 05:08 → MEDS 03-08 05:08 → PCU 03-08 05:08 → MEDS 03-08 05:08 → ICUW 03-08 12:41 → PCU 03-10 21:50
PROVIDERS: Internal Medicine; Pharmacist Pharmacotherapy; Student in an Organized Health Care Education/Training Program; ADMIT Internal Medicine
PROC: 5A09557 Assistance with Respiratory Ventilation, Greater than 96 Consecutive Hours, Continuous Positive Airway Pressure (ICD-10-PCS; principal; 2023-03-08)
PROC: 02HV33Z Insertion of Infusion Device into Superior Vena Cava, Percutaneous Approach (ICD-10-PCS; 2023-03-08)
PROC: 4A133R1 Monitoring of Arterial Saturation, Peripheral, Percutaneous Approach (ICD-10-PCS; 2023-03-08)
PROC: 3E033XZ Introduction of Vasopressor into Peripheral Vein, Percutaneous Approach (ICD-10-PCS; 2023-03-08)
DX: I11.0 Hypertensive heart disease with heart failure (principal); G92.8 Other toxic encephalopathy; I50.33 Acute on chronic diastolic (congestive) heart failure; J96.22 Acute and chronic respiratory failure with hypercapnia; J96.21 Acute and chronic respiratory failure with hypoxia; L03.115 Cellulitis of right lower limb; L03.116 Cellulitis of left lower limb; I48.20 Chronic atrial fibrillation, unspecified; E46 Unspecified protein-calorie malnutrition; Z66 Do not resuscitate; E11.9 Type 2 diabetes mellitus without complications; G71.00 Muscular dystrophy, unspecified; G47.33 Obstructive sleep apnea (adult) (pediatric); R79.1 Abnormal coagulation profile; I95.9 Hypotension, unspecified; G47.00 Insomnia, unspecified; K21.9 Gastro-esophageal reflux disease without esophagitis; Z95.2 Presence of prosthetic heart valve; Z90.49 Acquired absence of other specified parts of digestive tract; Z98.890 Other specified postprocedural states; Z87.81 Personal history of (healed) traumatic fracture; Z86.73 Personal history of transient ischemic attack (TIA), and cerebral infarction without residual deficits; Z91.048 Other nonmedicinal substance allergy status; Z79.51 Long term (current) use of inhaled steroids; Z79.899 Other long term (current) drug therapy; Z68.39 Body mass index [BMI] 39.0-39.9, adult; Z79.01 Long term (current) use of anticoagulants; Z88.8 Allergy status to other drugs, medicaments and biological substances; Z79.02 Long term (current) use of antithrombotics/antiplatelets; Z79.2 Long term (current) use of antibiotics; Z99.89 Dependence on other enabling machines and devices
CPT/HCPCS: 31720; 36415; 36569; 36600; 51701; 51702; 70450; 70496; 71045; 80048; 80053; 81001; 82140; 82803; 82947; 83605; 83735; 83880; 84145; 85025; 85027; 85610; 85651; 86140; 87040; 92526; 92610; 93005; 93010; 94640; 94660; 94664; 94762; 96374; 96375; 99285-25; A9270; C1751; C8929; J0690; J0696; J1120; J1940; J3430; J7050; J7060; Q9957; Q9967

== ENCOUNTER 2023-03-15 02:08 | Emergency (ER) | payer OTHER ==
[~2023-03-15] VITALS: Ht 175.3 cm; Wt 119.3 kg
[~2023-03-15 02:08] MED LIST changes: +Amoxicillin500 M1 PO
[2023-03-15 04:00] VITALS: BP 125/89
[2023-03-15] MEDS ORDERED: AFRIN15 M6 INH (14:49)
== END 2023-03-15 04:39 | disposition home or self-care (01) ==
LOC: ER 02:08
DX: J96.11 Chronic respiratory failure with hypoxia (principal); Z88.8 Allergy status to other drugs, medicaments and biological substances; Z79.899 Other long term (current) drug therapy; Z79.01 Long term (current) use of anticoagulants; I11.0 Hypertensive heart disease with heart failure; K21.9 Gastro-esophageal reflux disease without esophagitis; E11.9 Type 2 diabetes mellitus without complications; G47.33 Obstructive sleep apnea (adult) (pediatric); I50.9 Heart failure, unspecified; I48.91 Unspecified atrial fibrillation
CPT/HCPCS: 71045; 93005; 93010; 99285-25

== ENCOUNTER 2023-03-15 14:35 | Inpatient (IN) | payer OTHER ==
[~2023-03-15] VITALS: Ht 162.6 cm; Wt 105.5 kg
[2023-03-15] MEDS ORDERED: AFRIN15 M6 INH (14:49)
[2023-03-15 19:39] LABS: Prothrombin Time Results 41.3 Sec (9.7-11.5)
[2023-03-15 19:41] LABS: International Normalized Ratio 4.27
[2023-03-15 21:43] VITALS: BP 135/101
--- NOTE | 2023-03-15 21:59 | NUR ---
ADMIT NOTE PT SETTLED IN ROOM, PT INCONTINENT OF URINE AFTER REMOVING CONDOM CATH SHORTLY AFTER ARRIVING TO HIS ROOM FROM ER. PT CLEANED UP AND FRESH LINENS PROVIDED. BEDSIDE SWALLOW EVAL PERFORMED PER ORDERS, PT PASSED. WOUND PRESENT TO LEFT ALVAREZ, PICTURES TAKEN AND WOUND REDRESSED. BIPAP IS IN PLACE, MAINTAINING SATS. PT DENIES NEEDS AT THIS TIME. SOME CONFUSION PRESENT BUT HE ANSWERS MOST OF MY QUESTIONS APPROPRIATELY.
[2023-03-15 23:00] VITALS: BP 138/90
[2023-03-16 04:00] VITALS: BP 125/85
--- NOTE | 2023-03-16 04:06 | NUR ---
SHIFT SUMMARY PT ER ADMIT THIS SHIFT FOR ARF WITH HYPOXIA. PT ON BIPAP CHRONICALLY AND FAILED TO WEAR HIS BIPAP UPON DISCHARGE. PT READMITTED AFTER A RECENT DISCHARGE A FEW DAYS AGO. PT HAS BEEN ON BIPAP SINCE ADMISSION FI02 AT 30%, PT IS TOLEARING AND HAS BEEN COMPLIANT WITH WEARING. CHEST XRAY SHOWS PNEUMONIA. PT HAS OCCASIONAL COUGH. PT INCONTINENT OF URINE AND STOOL, JESÚS CARE PERFORMED THIS SHIFT. WOUND ON LEFT ALVAREZ CLEANED AND REDRESSED, PHOTOS TAKEN AND PLACED OM CHART. ADMISSION COMPLETE, BED IN LOWEST POSITION, CALL LIGHT WITHIN REACH.
[2023-03-16 04:46] LABS: BASOPHILS ABSOLUTE AUTO 0.02 K/mm3 (0.00-0.23); BASOPHILS PERCENT AUTO 0 % (0-2); EOSINOPHILS ABSOLUTE AUTO 0.03 K/mm3 (0.00-0.68); EOSINOPHILS PERCENT AUTO 0 % (0-6); Hematocrit 45.8 % (37.0-53.0); IMMATURE GRAN ABSOLUTE AUTO 0.03 K/mm3 (0.00-0.10); IMMATURE GRAN PERCENT AUTO 0 % (0-1); LYMPHOCYTES ABSOLUTE AUTO 1.27 K/mm3 (0.84-5.20); LYMPHOCYTES PERCENT AUTO 12 % (21-46); MONOCYTES ABSOLUTE AUTO 0.69 K/mm3 (0.16-1.47); MONOCYTES PERCENT AUTO 7 % (4-13); Mean Corpuscular HGB 30.5 pg (26.0-34.0); Mean Corpuscular HGB Conc 30.6 g/dL (31.5-36.5); Mean Corpuscular Volume 100 fL (80-100); Mean Platelet Volume 12.4 fL (9.1-12.4); NEUTROPHILS ABSOLUTE AUTO 8.61 K/mm3 (1.96-9.15); NEUTROPHILS PERCENT AUTO 81 % (41-73); Platelet Count 113 K/mm3 (150-400); RDW Coefficient Variation 17.5 % (11.7-14.2); RDW Standard Deviation 61.2 fL (35.1-46.3); Red Blood Cell Count 4.59 M/mm3 (4.30-5.90); White Blood Cell Count 10.65 K/mm3 (4.00-11.30)
[2023-03-16 04:59] LABS: Albumin, Blood 2.9 g/dL (3.4-5.0); Albumin/Globulin Ratio 0.8 (0.8-1.8); Bilirubin, Total 0.9 mg/dL (0.1-1.0); Bun/Creatinine Ratio 31.3 (12.0-20.0); Calcium, Blood 9.2 mg/dL (8.5-10.1); Creatinine, Blood 0.73 mg/dL (0.60-1.20); Globulin, Blood 3.6 g/dL (2.2-4.0); Potassium, Blood 3.7 mmol/L (3.5-5.5); Total Protein, Blood 6.5 g/dL (6.4-8.2)
[2023-03-16 05:15] LABS: Prothrombin Time Results 43.9 Sec (9.7-11.5)
[2023-03-16 05:34] LABS: International Normalized Ratio 4.56
--- NOTE | 2023-03-16 06:42 | NUR ---
SKIN ASSESSMENT-WOUND SMALL WOUND NOTICED ON PT BUTTOCKS WITH ATTEND CHANGE THIS AM. WILL NOTIFY DAYSHIFT RN FOR FURTHER FOLLOW AND FOR PICTURES OF WOUND.
[2023-03-16 06:52] VITALS: BP 142/80
--- NOTE | 2023-03-16 07:38 | NUR ---
Received report from board mill supervisor RN. Patient is awake and speech mostly unclear and mumbles alot. He is able to get yes/no out where it is understandable. He is wearing BIPAP 15/7 30% and sats >90%. He has attends in place and has been incontinent of stool and urine this am. He has 20ga IV in RAC and is flushed and SL'd. LEAHY but weak and has some contraction
--- NOTE | 2023-03-16 11:30 | NUR ---
Patient awake in bed watching TV. He trolerated am meds with water. He is anxiously awaiting GI cunsult. Started [address] tolerated well. Dr Morse was in with patient, no new orders. Patient continues to have copius amount of clear urine (2 Liters). will be coming in at noon his personal CPAP. He remains on RA and sats >90%. ECHO just finished.
--- NOTE | 2023-03-16 11:41 | NUR ---
Patient is awake and caregiver in room , Dr Garduno and resident is room with them. We changed to full face mask for BIPAP and patient likes better. He tolerated some food this am and orange juice and well as po meds. He is currently on NC 5L O2 and sats 97%. Oral care done pre and post eating. His speech slightly better to understand. Benita pretty'd
[2023-03-16 12:00] VITALS: BP 132/93
--- NOTE | 2023-03-16 17:06 | NUR ---
Caregivers were here and brought his trilogy BIPAP in. He has remainsed awake and watching TV. He was on 5L O2 via NC and sats 94% and placed him back on V60 to rest after they left. He continues to be happy with full face mask. He was incontinent of stool and urine and cleaned him up and changed linen. Changed dressings to LLE. VSS
[2023-03-16 17:53] VITALS: BP 171/118
[2023-03-16 19:47] VITALS: BP 141/94
[2023-03-16 23:22] VITALS: BP 124/86
[2023-03-17 03:42] VITALS: BP 110/89
[2023-03-17 04:54] LABS: BASOPHILS ABSOLUTE AUTO 0.03 K/mm3 (0.00-0.23); BASOPHILS PERCENT AUTO 0 % (0-2); EOSINOPHILS ABSOLUTE AUTO 0.09 K/mm3 (0.00-0.68); EOSINOPHILS PERCENT AUTO 1 % (0-6); Hematocrit 42.2 % (37.0-53.0); Hemoglobin 12.7 g/dL (13.5-17.5); IMMATURE GRAN ABSOLUTE AUTO 0.03 K/mm3 (0.00-0.10); IMMATURE GRAN PERCENT AUTO 0 % (0-1); LYMPHOCYTES ABSOLUTE AUTO 1.34 K/mm3 (0.84-5.20); LYMPHOCYTES PERCENT AUTO 16 % (21-46); MONOCYTES ABSOLUTE AUTO 0.62 K/mm3 (0.16-1.47); MONOCYTES PERCENT AUTO 8 % (4-13); Mean Corpuscular HGB 29.5 pg (26.0-34.0); Mean Corpuscular HGB Conc 30.1 g/dL (31.5-36.5); Mean Corpuscular Volume 98 fL (80-100); Mean Platelet Volume 12.3 fL (9.1-12.4); NEUTROPHILS ABSOLUTE AUTO 6.14 K/mm3 (1.96-9.15); NEUTROPHILS PERCENT AUTO 74 % (41-73); Platelet Count 103 K/mm3 (150-400); RDW Coefficient Variation 17.3 % (11.7-14.2); RDW Standard Deviation 61.1 fL (35.1-46.3); White Blood Cell Count 8.25 K/mm3 (4.00-11.30)
[2023-03-17 05:08] LABS: International Normalized Ratio 3.92; Prothrombin Time Results 38.1 Sec (9.7-11.5)
[2023-03-17 05:16] LABS: Magnesium, Blood 2.2 mg/dL (1.6-2.4)
--- NOTE | 2023-03-17 05:42 | NUR ---
SHIFT SUMMARY NO ACUTE CHANGES NOTED THROUGH THE NIGHT, PT REMAINS A&O, COOPERATIVE W/CARE, ABLE TO MAKE NEEDS KNOWN, VSS, AFIB, SPO2 >95% ON BIPAP FACE MASK WHILE SLEEPING & 5L O2 VIA NC WHILE AWAKE. BEDSIDE SWALLOW EVAL COMPLETED, SPEECH EVAL WAS ORDERED DUE TO ASPIRATION RISK, Q2 TURNS PROVIDED, ATTENDS CHANGED PRN. PT IS AWAKE WATCHING TV AT THIS TIME, CALL LIGHT IN REACH, WCTM & REPORT TO DAY RN.
[2023-03-17 05:50] LABS: Alanine Aminotransfer (ALT/SGP 21 U/L (12-78); Albumin, Blood 2.6 g/dL (3.4-5.0); Albumin/Globulin Ratio 0.8 (0.8-1.8); Alk Phos 64 U/L (50-136); Anion Gap Unable to Calculate mmol/L (6-16); Aspartate Aminotrans (AST/SGOT 33 U/L (12-37); Bilirubin, Total 1.1 mg/dL (0.1-1.0); Blood Urea Nitrogen 24 mg/dL (8-24); Bun/Creatinine Ratio 33.5 (12.0-20.0); CO2, Blood 41 mmol/L (21-32); Calcium, Blood 8.8 mg/dL (8.5-10.1); Chloride, Blood 106 mmol/L (98-108); Creatinine, Blood 0.72 mg/dL (0.60-1.20); Globulin, Blood 3.3 g/dL (2.2-4.0); Glomerular Filtration Rate 111 (60-); Glucose, Blood 124 mg/dL (70-99); Potassium, Blood 3.5 mmol/L (3.5-5.5); Sodium, Blood 146 mmol/L (136-145); Total Protein, Blood 5.9 g/dL (6.4-8.2)
[2023-03-17 08:00] VITALS: BP 129/98
[2023-03-17 12:00] VITALS: BP 127/85
[2023-03-17 16:00] VITALS: BP 129/86
--- NOTE | 2023-03-17 16:28 | NUR ---
SHIFT SUMMARY THIS RN ASSUMED CARE OF PT AT 0715, REPORT FROM AMBERLY ELAM. PT ASLEEP IN ROOM, BT EASILY AWAKENED. PT A&O X 2-3. VSS THROUGHOUT SHIFT. PT DENIES CP OR PRESSURE. DENIES SOB. PT ON 5 L OF 02 AT START OF SHIFT, TITRATED TO 3 L VIA NC; SPO2 94 - 96%. PT WORE BIPAP DURING AFTERNOON NAP AND TOLERATED THIS WELL. FULL BED BATH, LINEN AND GOWN CHANGE COMPLETED. PT TURNED AND ATTENDS CHANGED Q2 AND/OR PRN. PT HAS BM BUT SMALL/SMEAR. NO ACUTE CHANGES THIS SHIFT. ORAL CARE COMPLETED X2 THIS SHIFT. PT CONTINUE TO HAVE A COUGH, ABLE TO CLEAR ON HIS OWN, HOWEVER PT IS HAVING A LOT OF SECRETIONS. REQUIRING SUCTION NEEDS. PT CURRENTLY ASLEEP, BIPAP IN PLACE. PT IS TO BE TRANSFERRED TO MEDICAL FLOOR. WILL UPDATE AND GIVE REPORT TO RN ASSUMING CARE OF PT. CALL LIGHT IN REACH
--- NOTE | 2023-03-17 17:34 | NUR ---
TRANSFER NOTE PT TRANSFERRED TO MEDICAL FLOOR, REPORT GIVEN TO AMBERLY HARTLEY. VSS. PT TRANSPORTED VIA HOSPITAL BED. PT BELONGINGS SENT WITH PT. PT SENT UP W/O2, ON 3 L. PT AWAKE AT TRANSPORT.
--- NOTE | 2023-03-17 18:39 | NUR ---
SHIFT SUMMARY: ASSUMED CARE OF PATIENT UPON HIS ARRIVAL FROM PCU 7 AT 1730. PT A&O X 2, PLEASANT. PLACED ON O2 @ 5 L/MIN NC, BIPAP AT BEDSIDE. SUCTION SET UP, CAN SUCTION SELF. CBG 102, NO INSULIN COVERAGE NEEDED. ATE DINNER WITH ASSISTANCE. HARSH INTERNAL COMMUNICATIONS MANAGER COUGH. PLACED ON CONTACT PRECAUTIONS FOR HX MRSA IN WOUND.
[2023-03-17 19:32] VITALS: BP 156/103
[2023-03-17 22:41] VITALS: BP 136/92
[2023-03-18 03:10] VITALS: BP 124/89
[2023-03-18 04:55] LABS: BASOPHILS ABSOLUTE AUTO 0.02 K/mm3 (0.00-0.23); BASOPHILS PERCENT AUTO 0 % (0-2); EOSINOPHILS ABSOLUTE AUTO 0.05 K/mm3 (0.00-0.68); EOSINOPHILS PERCENT AUTO 1 % (0-6); Hematocrit 45.8 % (37.0-53.0); Hemoglobin 13.8 g/dL (13.5-17.5); IMMATURE GRAN ABSOLUTE AUTO 0.02 K/mm3 (0.00-0.10); IMMATURE GRAN PERCENT AUTO 0 % (0-1); LYMPHOCYTES ABSOLUTE AUTO 0.98 K/mm3 (0.84-5.20); LYMPHOCYTES PERCENT AUTO 15 % (21-46); MONOCYTES ABSOLUTE AUTO 0.51 K/mm3 (0.16-1.47); MONOCYTES PERCENT AUTO 8 % (4-13); Mean Corpuscular HGB 30.1 pg (26.0-34.0); Mean Corpuscular HGB Conc 30.1 g/dL (31.5-36.5); Mean Corpuscular Volume 100 fL (80-100); Mean Platelet Volume 12.1 fL (9.1-12.4); NEUTROPHILS ABSOLUTE AUTO 4.99 K/mm3 (1.96-9.15); NEUTROPHILS PERCENT AUTO 76 % (41-73); Platelet Count 115 K/mm3 (150-400); RDW Coefficient Variation 17.3 % (11.7-14.2); RDW Standard Deviation 60.7 fL (35.1-46.3); Red Blood Cell Count 4.59 M/mm3 (4.30-5.90); White Blood Cell Count 6.57 K/mm3 (4.00-11.30)
[2023-03-18 05:10] LABS: International Normalized Ratio 3.52; Prothrombin Time Results 34.4 Sec (9.7-11.5)
[2023-03-18 05:28] LABS: Anion Gap Unable to Calculate mmol/L (6-16); Blood Urea Nitrogen 24 mg/dL (8-24); Bun/Creatinine Ratio 34.7 (12.0-20.0); CO2, Blood 42 mmol/L (21-32); Calcium, Blood 9.3 mg/dL (8.5-10.1); Chloride, Blood 103 mmol/L (98-108); Creatinine, Blood 0.69 mg/dL (0.60-1.20); Glomerular Filtration Rate 112 (60-); Glucose, Blood 142 mg/dL (70-99); Potassium, Blood 3.5 mmol/L (3.5-5.5); Sodium, Blood 143 mmol/L (136-145)
--- NOTE | 2023-03-18 05:33 | NUR ---
PATIENT IS ORIENTED TO SELF, SITUATION AND PLACE, ALTHOUGH HARD TO UNDERSTAND AT TIMES. WENT BETWEEN HIGH FLOW NC AND BIPAP WITH 7L BLEED IN HE DESATS TO 50'S WHEN OFF. SWALLOWS PILLS WHOLE. BEDREST AT BASELINE AND NEEDS HELP REPOSITIONING AND TOILETING. INC OF STOOL AND URINN. LUNGS ARE COARSE, WITH A MOIST PRORUCTIVE COUGHT. SUCTION SET UP AT BEDSIDE. NO EDEMA. WILL CONT TO MONITOR.
[2023-03-18 08:27] VITALS: BP 125/96
--- NOTE | 2023-03-18 10:36 | NUR ---
Spoke with Dr Gera Lee, Primary RN Donal, AMBERLY Skinner and discussed case. Pt wishes are to focus on comfort. Pt resting in bed upon arrival. Pt significantly lethargic and does not remain awake through visit despite several attempts with verbal stimuli. Pt has It Training Specialist from [facility] Andree at bedside. Engaged in therapeutic conversation regarding goals of care. She confirms Pt's wishes are DNR and comfort measures only. She reports Pt's careteam at [facility] are on board with following Pt's wishes. Educated on comfort care and hospice philosophy with V/U made by Andree. Pt remains a sleep. Spoke with AMBERLY Skinner, we reviewed Pt's POLST on file [place] [address] Ames, Pt, and Pt's mother. Pt's wishes on POLST is DNR and comfort measures only. Hellen will discuss D/C plan and hospice agencies with Andree. Placed comfort care oder, comfort care order set, D/C maintenance medications per V/O from Dr Valenzuela as Dr Gera Lee was unavailable at time orders were placed. Palliative Care will remain available
--- NOTE | 2023-03-18 11:19 | NUR ---
Received call from Pt's Primary RN Vahe reporting staff from [facility] are here and would like PC visit. Met with staff from [facility]. Offered therapeutic listening and answered questions regarding hospice philosophy. Staff expresses appreciation and report no other concerns at this time. Plan for Pt to D/C around 1300 with hospice services. Palliative Care will remain available
[2023-03-18] MEDS ORDERED: TORSE20 PO (11:36)
--- NOTE | 2023-03-18 12:12 | NUR ---
As requested by [employer] Oper[employer] Maru, I had a conversation with the pt about his wishes, both last evening, and again this am. He was very clear that he did want to return home with hospice. I called Shayna, Director of [facility] as requested, and instructed her to continue to follow most recent instructions for 4L until patient returns home, and has appropriate comfort medications available prior to titrating oxygen lower. Pt will be transported home via gurney, and may experience desaturation and increased SOB. She is in agreement. I also explained rational to floor nurse Vahe, who is also in agreement.
--- NOTE | 2023-03-18 14:35 | NUR ---
DISCHARGE SUMMARY SLEEPS FREQUENTLY, DROWSY WHEN AWAKE. MET WITH PALLIATIVE CARE RN. ORDERS GIVEN FOR COMFORT CARE. PATIENT CHOKED AND ASPIRATED EGG WITH BREAKFAST. TRAY REMOVED, PATIENT REMAINED SITTING UP 90 DEGREES FOR 40 MINUTES, COUGHED FOR ABOUT 15 MINUTES. ATTENDS CHANGED, GOWN CHANGED. IV DC'D WNL BY CUSTOMER ASSISTANCE ASSOCIATE. MEDICATED FOR AIR HUNGER BEFORE MEDICAL TRANSPORT HOME ON HOSPICE CARE. 4L O2 VIA NC FOR COMFORT. PATIENT'S HOME BIPAP PICKED UP BY CAREGIVER. PATIENT LEFT UNIT AT 1245 VIA MEDICAL TRANSPORT FOR HOME.
--- NOTE | 2023-03-18 18:15 | NUR ---
Late Entry from previous visit note with staff from [facility] for [facility] handic[facility]. Staff requests that O2 be titrated down and if possible O2 be turned off. Educated that O2 can be titrated down as comfort will allow. Pt appears comfortable with no S/S of respiratory distress. Requested Primary RN Vahe to titrate down to 2 L O2 via NC. Remained and assessed Pt for approximately 15 minutes. Pt remains comfortable with no S/S of distress.
== END 2023-03-18 13:15 | disposition hospice, home (50) | DRG 291 ==
LOC: ER 14:35 → MEDS 19:54 → ER 19:54 → MEDS 20:52 → PCU 20:52 → MEDS 03-17 17:28 → ENPENDDIS 03-18 11:00 → MEDS 03-18 13:15
PROVIDERS: Family Medicine; ADMIT Internal Medicine
PROC: 5A09357 Assistance with Respiratory Ventilation, Less than 24 Consecutive Hours, Continuous Positive Airway Pressure (ICD-10-PCS; principal; 2023-03-15)
DX: I11.0 Hypertensive heart disease with heart failure (principal); I50.33 Acute on chronic diastolic (congestive) heart failure; J96.21 Acute and chronic respiratory failure with hypoxia; J96.22 Acute and chronic respiratory failure with hypercapnia; I48.20 Chronic atrial fibrillation, unspecified; D84.89 Other immunodeficiencies; Z51.5 Encounter for palliative care; Z91.199 Patient's noncompliance with other medical treatment and regimen due to unspecified reason; Z66 Do not resuscitate; K12.1 Other forms of stomatitis; K12.30 Oral mucositis (ulcerative), unspecified; G80.9 Cerebral palsy, unspecified; G71.00 Muscular dystrophy, unspecified; K21.9 Gastro-esophageal reflux disease without esophagitis; E11.9 Type 2 diabetes mellitus without complications; G47.33 Obstructive sleep apnea (adult) (pediatric); Z95.4 Presence of other heart-valve replacement; Z99.81 Dependence on supplemental oxygen; Z86.73 Personal history of transient ischemic attack (TIA), and cerebral infarction without residual deficits; Z90.49 Acquired absence of other specified parts of digestive tract; Z98.890 Other specified postprocedural states; Z88.8 Allergy status to other drugs, medicaments and biological substances; Z79.01 Long term (current) use of anticoagulants; Z79.899 Other long term (current) drug therapy
CPT/HCPCS: 36415; 71045; 80048; 80053; 82607; 82746; 82947; 83735; 83880; 84145; 85025; 85610; 92610; 94660; 94664; 94667; 94668; 94762; 96374; 97110; 97162; 97530; 99285-25; A9270; J1940